=== PATIENT | female | born 1955 | race African-American/Black ===

== ENCOUNTER 2017-10-19 10:35 | Emergency (ER) | payer MEDICARE, MEDICAID ==
[~2017-10-19] VITALS: Ht 167.6 cm; Wt 129.5 kg
[2017-10-19] MEDS ORDERED: SODIUM CHLORIDE FLUSH 10ML SYR IVF ONE (11:00)
[2017-10-19] MEDS ORDERED: ALBUTEROL/IPRATROPIUM 2.5MG/0.5MG, 3 ML NPPB SCH (11:00)
[2017-10-19] MEDS ORDERED: ALBUTEROL/IPRATROPIUM 2.5MG/0.5MG, 3 ML ONE (11:05)
[2017-10-19 11:14] LABS: BLOOD UREA NITROGEN 8 mg/dL (7-18)
[2017-10-19 13:02] LABS: HEMATOCRIT 45.7 % (34.6-47.8); HEMOGLOBIN 15.5 g/dL (11.7-16.4); WHITE BLOOD COUNT 7.7 x10^3/uL (3.4-10)
[2017-10-19 13:31] VITALS: BP 133/83
== END 2017-10-19 13:41 | disposition home or self-care (01) ==
LOC: ED 12:35
DX: J20.8 Acute bronchitis due to other specified organisms (principal); B96.89 Other specified bacterial agents as the cause of diseases classified elsewhere; I10 Essential (primary) hypertension
CPT/HCPCS: 36415; 71010; 80048; 82040; 83880; 85025; 93005; 94640; 99285; J7512; J7620

== ENCOUNTER 2018-04-16 09:08 | Emergency (ER) | payer MEDICARE, MEDICAID ==
[~2018-04-16] VITALS: Ht 175.3 cm; Wt 128.5 kg
[~2018-04-16 09:08] MED LIST: ALBU18HF BC; AZIT500T PO; BUDE10.2 BC; FURO40SO5 PO; GUAI600T31 PO; IPRA3AMP NPPB; LOSA50TA6 PO; OMEP-110 PO; PRED10TA PO; RANI300C PO; TIOT18CA INH; [UNRECOGNIZED DRUG - CODE] PO
[2018-04-16 09:55] LABS: BASOPHILS # (AUTO) 0.03 x10^3/uL (0-0.1); BASOPHILS % (AUTO) 1 % (0-1); EOSINOPHILS # (AUTO) 0.14 x10^3/uL (0-0.4); EOSINOPHILS % (AUTO) 2 % (1-7); LYMPHOCYTES # (AUTO) 2.11 x10^3/uL (1-3.4); LYMPHOCYTES % (AUTO) 31 % (22-44); MD NO; MEAN CORPUSCULAR HEMOGLOBIN 31.5 pg (27.0-34.8); MEAN CORPUSCULAR HGB CONC 33.7 g/dL (32.4-35.8); MEAN CORPUSCULAR VOLUME 93.5 fL (80-100); MEAN PLATELET VOLUME 7.5 fL (7.4-10.4); MONOCYTES # (AUTO) 0.59 x10^3/uL (0.2-0.8); MONOCYTES % (AUTO) 9 % (2-9); NEUTROPHILS # (AUTO) 3.98 x10^3/uL (1.8-6.8); NEUTROPHILS % (AUTO) 58 % (42-75); PLATELET COUNT 318 x10^3/uL (130-400); RED BLOOD COUNT 4.81 x10^6/uL (3.82-5.3); RED CELL DISTRIBUTION WIDTH 13.9 % (9.6-15.2)
[2018-04-16 10:05] LABS: ALANINE AMINOTRANSFERASE 41 U/L (12-78); ALBUMIN 3.7 g/dL (3.4-5.0); ANION GAP 6 mmol/L (5-15); CALCIUM 8.3 mg/dL (8.5-10.1); CHLORIDE 109 mmol/L (98-107); CREATININE 0.84 mg/dL (0.55-1.02)
[2018-04-16 10:10] LABS: ALKALINE PHOSPHATASE 79 U/L (45-117); BILIRUBIN,TOTAL 0.5 mg/dL (0.2-1.0); TOTAL PROTEIN 7.6 g/dL (6.4-8.2)
[2018-04-16 11:30] VITALS: BP 117/66
== END 2018-04-16 12:06 | disposition home or self-care (01) ==
LOC: ED 12:00
DX: R60.0 Localized edema (principal); J44.9 Chronic obstructive pulmonary disease, unspecified; I10 Essential (primary) hypertension
CPT/HCPCS: 36415; 71045; 80053; 83880; 85025; 93005; 93970; 99285